=== PATIENT | male | born 1965 | race Caucasian/White ===

== ENCOUNTER 2024-08-25 15:17 | Emergency (ER) | payer OTHER, SELFPAY ==
[2024-08-25 15:27] VITALS: BP 148/95
--- NOTE | 2024-08-25 18:05 | ED.GENMED ---
History of Present Illness
General
Chief Complaint: Fall
Source: patient
Exam Limitations: none
Time Seen by Provider: 08/25/24 17:45
Nursing documentation reviewed up to this point in time: agreed with
History of Present Illness
History of Present Illness:
Patient is a 59-year-old male history of hypertension, hyperlipidemia presenting to the emergency department with left shoulder and left rib pain after mechanical fall yesterday. Patient states he was walking in his driveway when he tripped on his
daughter's dog and landed on his left side. Patient is adamant that he did not hit his head or lose consciousness. He was able to get himself up. He reports a mild abrasion to his left shoulder and left elbow. He states he has pain in his left
mid back/ribs. He denies any shortness of breath although states he has having mild pain when taking a deep breath.
Patient denies any chest pain, cough, or hemoptysis. No numbness or tingling in left upper extremity. No weakness or numbness in bilateral lower extremities. No saddle paresthesias or bowel/bladder incontinence. Patient is not on any blood
thinners.
No other concerns today.
Past History
Past History
ED Past Medical History: CVA and Other (aortic root aneurysm, PFO, MVP)
Social History
Tobacco: Non-smoker
Personal:
Living: with family
Review of Systems
Review of Systems
Allergies reviewed?: Yes
All Other Systems: ROS reviewed and negative except as documented in HPI and ROS
Phy Exam
Physical Exam
Physical Exam:
GENERAL: No acute distress
HEENT: atraumatic, extraocular muscles intact, no signs of entrapment, dentition intact, no other obvious trauma
NECK: no midline tenderness, normal range of motion,, no other obvious trauma
BACK: no midline tenderness, mild reproducible tenderness to left posterior lower ribs without ecchymoses, step-off, or crepitus
CHEST: no tenderness, no flail segment, no subcutaneous emphysema, no other obvious trauma
LUNGS: clear to auscultation bilaterally
CARDIOVASCULAR: regular rate and rhythm
ABDOMEN: soft, non-tender, no masses, no other obvious trauma
PELVIS: stable, no obvious injury
EXTREMITIES: Abrasion to left shoulder. No bony tenderness or obvious deformity of left upper extremity. Patient has excellent range of motion in left elbow and left shoulder against resistance. LUE neurovascularly intact with palpable DP pulse
and normal sensation. RUE, bilateral lower extremities atraumatic and nontender full range of motion
NEUROLOGIC: awake, alert x 3, no focal deficits
Course
Orders/Labs/Results
Orders:
Orders
08/25/24 15:30
Shoulder, Left, Trauma CR [CR Shoulder, Trauma - Left] Urgent
Comment:
Reason For Exam: fall, pain
08/25/24 16:42
Ribs, Left 3 View W/PA Chest CR [CR Ribs-left 3 Vw W/pa Chest] Urgent
Comment:
Reason For Exam: pain
08/25/24 18:00
Lidocaine [Lidocaine 4% Patch] 1 patch TOPICAL DAILY
Apply Lidocaine patch(s) to:: Left posterior ribs
08/25/24 18:01
Acetaminophen [Tylenol] 650 mg PO NOW STA
08/25/24 19:03
Incentive Spirometry [Rx Incentive Spirometry] [RESP] Urgent
Frequency: q1h while awake
Vital Signs
Initial and Last Documented VS:
Initial Vital Signs
Temp Pulse Resp BP Pulse Ox
97.7 F 89 18 148/95 100
08/25/24 15:27 08/25/24 15:27 08/25/24 15:27 08/25/24 15:27 08/25/24 15:27
Last Documented Vital Signs
Temp Pulse Resp BP Pulse Ox
97.7 F 78 16 144/73 99
08/25/24 15:27 08/25/24 19:02 08/25/24 19:02 08/25/24 19:02 08/25/24 19:02
MDM/Problems Addressed
Differential Diagnosis Includes:
Not limited to: Shoulder abrasion, shoulder fracture, clavicle fracture, rib contusion, rib fracture, pneumothorax, etc.
MDM/Problems Addressed:
59 y.o male with left shoulder and left flank pain following mechanical trip and fall yesterday. There was no head strike or LOC. Patient denies chest pain or SOB. Hypertensive, otherwise with stable vital signs. Exam as above. Patient has mild
abrasion to left shoulder with no obvious deformity or bony tenderness of LUE. LUE neurovascularly intact with excellent ROM. Mild reproducible tenderness of left posterior ribs without overlying ecchymosis or crepitus. Lungs are clear bilaterally.
Patient is neurologically intact with no evidence of head or neck trauma. Xrays of both left shoulder and left ribs without acute abnormalities. Likely rib contusion. Patient given lidocaine patch and tylenol in ED. Feel patient stable for
discharge home w/ PCP f/u. Patient to be discharged with incentive spirometer and close return precautions. Patient comfortable with plan.
Chronic conditions affecting care:
Hypertension
Acute Exacerbation and/or Progression of Chronic Illness:
Acutely hypertensive
*Radiology
Radiology exam reviewed: radiology read reviewed (No evidence of acute shoulder or rib fracture)
*Pulse Oximetry
Patient hypoxic: no
*EKG
Interpreted by ED Provider?: NA
*Disease And Insect Control Boss Interpretation
Rate: Disease And Insect Control Boss- N/A
*Critical Care Note
Total Time (30-74mins, 75-104mins- exclusive of procedures): Not Applicable
ED Attending Note
-
Portions of this chart may have been created with voice recognition software.� Occasional wrong word or��sound alike� substitutions may have occurred due to the inherent limitations of voice recognition software.
Discharge Plan
Departure
Patient Disposition: Home (Routine Discharge)
Date of Disposition: 08/25/24
Time of Disposition: 18:39
Patient with high blood pressure during this ER visit?: Yes
Condition: Good
Covid-19: Not Applicable
Discharge Problem:
Contusion of rib on left side, Abrasion of left shoulder
Instructions: Rib fracture or bruised rib - ED discharge instructions, BLOOD PRESSURE
Prescriptions:
No Action
atorvastatin 20 MG tablet
20 mg PO .AFTERNOON
aspirin 325 MG tablet
325 mg PO DAILY
metoprolol tartrate 12.5 MG tablet
12.5 mg PO DAILY
zdsrklvhzoj-vpedyqybz-dzm C-Mn 1 TAB tablet
1 tab PO DAILY
Referrals:
NONE,* [Family Provider] -
Jamaal Sanchez MD [Active] - As needed
Activity Restrictions/Additional Instructions:
Return to the emergency department with any high fevers, productive cough, chest pain or shortness of breath, intractable pain, worsening in current symptoms, or any other concerns
- As discussed�your x-ray showed no evidence of acute fracture of your shoulder or ribs. I suspect you likely sustained a contusion to one of your ribs.
- You should apply lidocaine patches and take Tylenol as needed for pain. Limit any movements that further increase pain.
- You should use incentive spirometer 10 times an hour when awake to prevent any complications.
- Follow-up with primary care/orthopedics for further evaluation/management as needed
Monitor your symptoms closely and return to the emergency department with any acute worsening/new symptoms or any other concerns
Interventions
Interventions:
*Risk Screen - Suicide Last Done: 08/25/24 15:27
*General Assessment Last Done: 08/25/24 15:27
*Neglect/Abuse Screening Last Done: 08/25/24 15:27
*ED- Fall Risk Assessment Last Done: 08/25/24 19:02
*ED COVID-19 Vaccine History Last Done: 08/25/24 17:35
*Nursing Disposition Last Done: 08/25/24 19:02
ED-Musculoskeletal Assessment Last Done: 08/25/24 19:04
ED- Neurological Assessment Last Done: 08/25/24 17:35
ED-Skin Assessment Last Done: 08/25/24 19:04
Discharge Date and Time
Discharge Date/Time: 08/25/24 19:04
Print Language: ARMENIAN
[2024-08-25] MEDS: LIDOCAINE 4% PATCH 1 PATCH TOPICAL (18:34)
[2024-08-25] MEDS: TYLENOL 650 MG PO (18:34)
[2024-08-25 19:02] VITALS: BP 144/73
== END 2024-08-25 19:04 | disposition home or self-care (01) ==
LOC: EMR 15:17
PROVIDERS: EMERGENCY PHYSICIAN Emergency Medicine
DX: S20.212A Contusion of left front wall of thorax, initial encounter (principal); S40.212A Abrasion of left shoulder, initial encounter; W01.0XXA Fall on same level from slipping, tripping and stumbling without subsequent striking against object, initial encounter; E78.5 Hyperlipidemia, unspecified; I10 Essential (primary) hypertension; Z86.73 Personal history of transient ischemic attack (TIA), and cerebral infarction without residual deficits
CPT/HCPCS: 99284; 71101; 73030